=== PATIENT | male | born 2000 | race Caucasian/White ===

== ENCOUNTER 2022-02-18 18:25 | Observation (INO) ==
[2022-02-18] MEDS ORDERED: ONDANSETRON INJ 2 MG/ML 2 ML VIAL IV STA (18:33)
[2022-02-18] MEDS ORDERED: SODIUM CHLORIDE 0.9% 500 ML IV STA (18:33)
[2022-02-18] MEDS ORDERED: SODIUM CHLORIDE 0.9% 1000ML 1,000 ML IV ONE (19:12)
--- NOTE | 2022-02-18 19:16 | Emergency Department Note ---
Impression & Plan Hypotension, Lower abdominal pain, Acute infectious diarrhea, Hypokalemia, Acute dehydration, Near syncope ED Provider Note NAME: SANDEE CAMEJO AGE: 21 SEX: M : 2000 ARRIVES VIA: Walk-In INFORMANT: Patient ED PROVIDER(S): [Flex Carrasco MD] CHIEF COMPLAINT: Abdominal pain HISTORY OF PRESENT ILLNESS: The patient is a 21-year-old male who has had diarrhea for 2 weeks. No black or bloody stool. He states that when he would eat something, he would have to run t o the bathroom. Today, he developed vomiting on top of the diarrhea and also some severe mid to lower abdominal pain. The pain was constant. He felt near syncopal. There has been no fever, no urinary complaint. No cough or cold or congestion. The patient has not had any sick contacts. No bad food eaten. He has not been camping. He has no known inflammatory bowel disease, ulcerative colitis or Crohn's disease diagnosis. REVIEW OF SYSTEMS: See HPI for pertinent positives and negatives. A total of ten systems were reviewed and were otherwise negative. PMHx/PSHx: See Below SOCIAL HISTORY: See Below. PHYSICAL EXAM: GENERAL: Patient is in no acute distress. HEENT: No acute trauma, normocephalic atraumatic, mucous membranes moist, no nasal congestion, no scleral icterus. NECK: No stridor, no adenopathy, no meningismus, trachea is midline. LUNGS: Clear to auscultation bilaterally, no wheeze, no rhonchi, breath sounds equal. HEART: Without murmurs gallops or rubs, regular rate and rhythm. ABDOMEN: Soft, moderately tender in the left lower quadrant, bowel sounds pos itive, no peritonitis. EXTREMITIES: No cyanosis or edema, full range of motion of all the joints wit hout pain or difficulty, no signs for acute trauma. NEUROLOGIC: Oriented x 3, no acute motor or sensory deficits, no focal weakness. SKIN: No rash, no jaundice, no diaphoresis. DIFFERENTIAL DIAGNOSIS: Appendicitis, testicular torsion, viral or foodborne illness, diverticulitis, colitis, UTI, obstruction, mesenteric ischemia, aortic pathology, inflammatory bowel disease, renal colic, PUD, pancreatitis, biliary pathology, hernia, volvulus, constipation, as well as other pathologies. EMERGENCY DEPARTMENT COURSE/PROCEDURES: ECG: Indication was near syncope. The ECG shows a normal sinus rhythm with a rate of 96. There is some diffuse nonspecific ST change. There is no ST elevation, no PVCs. The QTc is 414. Continuous Cardiac Monitoring: An order was placed for continuous cardiac monitoring. The monitor shows a rate of 78 with normal sinus rhythm. Critical Care Note: I have personally spent 43 minutes of critical care time in the direct management of this patient. This includes bedside care, interpretation of diagnostic studies, and testing, discussion with consultants, patient, and family members, and other required patient management activities. This 43 minutes is in excess of all separately billable procedures. MEDICAL DECISION MAKING: There is a mild leukocytosis which could be consistent with infection. Hemoglobin was actually high at 18.5, consistent with dehydration. Platelet count was adequate. Potassium was low at 3.3. No renal failure. No concerning liver enzyme elevation. No evidence for pancreatitis. Urinalysis did not show infection. Stool bio fire testing returned positive for E. coli, Entamoeba histolytica, Giardia lamblia, norovirus. Abdominal and pelvis CT showed air- fluid levels in the colon consistent with diarrhea, no colitis or diverticulitis described. COVID test returned negative. The patient received 2 L of IV saline, he received IV potassium, IV Zofran. The patient presents with 2 weeks of diarrhea. Things progressed today to lower abdominal pain and vomiting. He had a near syncopal spell in triage and his initial blood pressure was low in the 80s. I do think the patient requires a hospital stay. I did attempt to contact her GI but I was unable to speak to the on-call physician. The secretaries were unable to reach him via phone or text. I did speak with case management, I spoke with the patient at length. I did speak with the on-call hospitalist. Past Med/Surg History Medical History No significant medical problems Social History Smoking Status: Never smoker Preferred Language: Nigerian Feels Safe at Home: Yes Allergies Allergies Allergy/AdvReac Type Severity Reaction Status Date / Time No Known Allergies Allergy Unverified 02/18/22 19:53 Home Meds Home Medications Medication Instructions Recorded Confirmed Fiber Gummy 1 tab PO DAILY 02/18/22 02/18/22 aripiprazole 10 mg tablet (Abilify) 0 mg PO DAILY 02/18/22 02/18/22 sertraline 25 mg tablet (Zoloft) 0 mg PO DAILY 02/18/22 02/18/22 Results & Data (ED) Vital Signs Vital Signs - 24 hr 02/18/22 18:27 02/18/22 18:47 02/18/22 19:10 Temperature 36.4 C L Temperature Source Temporal Artery Scan Pulse Rate 105 H Pulse Rate [Left Apical] 78 Pulse Rhythm [Left Apical] Regular Pulse Strength [Left Apical] Normal Respiratory Rate 18 20 Respiratory Effort / Characteristics Non-Labored Respiratory Depth Normal Blood Pressure 88/37 L Blood Pressure [Right Arm] 96/47 L 135/81 Blood Pressure Mean 54 Blood Pressure Mean [Right Arm] 63 99 Blood Pressure Position Sitting Blood Pressure Position [Right Arm] Lying Lying Pulse Oximetry 97 98 Oxygen Delivery Method Room Air Room Air Sepsis Recent Fever Within 48 Hours No Sepsis New/Unexplained Change in Mental Status No Sepsis Action Taken by Nursing No Action Required 02/18/22 21:00 02/18/22 23:00 Temperature Temperature Source Pulse Rate Pulse Rate [Left Apical] 78 78 Pulse Rhythm [Left Apical] Pulse Strength [Left Apical] Respiratory Rate 12 19 Respiratory Effort / Characteristics Respiratory Depth Normal Blood Pressure Blood Pressure [Right Arm] 121/66 123/78 Blood Pressure Mean Blood Pressure Mean [Right Arm] 84 93 Blood Pressure Position Blood Pressure Position [Right Arm] Pulse Oximetry 98 98 Oxygen Delivery Method Room Air Room Air Sepsis Recent Fever Within 48 Hours Sepsis New/Unexplained Change in Mental Status Sepsis Action Taken by Long-Term Medications Current Medication List: was personally reviewed by me Laboratory Data Attestation: I reviewed the patient's lab results. Result diagrams: 02/18/22 18:50 02/18/22 18:50 Lab Results 02/18/22 02/18/22 02/18/22 Range/Units 14:33 18:50 18:50 WBC 12.66 H (4.8-10.8) K/uL RBC 6.43 H (4.7-6.1) M/uL Hgb 18.5 H (14.0-18.0) g/dL Hct 51.0 (42-52) % MCV 79.3 L (80-100) fL MCH 28.8 (25-34) pg MCHC 36.3 H (32-36) g/dL RDW Std Deviation 35.7 L (36.4-46.3) fL RDW Coeff of Shakira 12.5 (11.5-14.5) % Plt Count (130-400) K/uL MPV (7.4-10.4) fL Immature Gran % (Auto) 0.3 % Neut % (Auto) 70.3 % Lymph % (Auto) 18.2 % [place] % (Auto) 10.4 % Eos % (Auto) 0.6 % Baso % (Auto) 0.2 % Neut # (Auto) 8.91 H (1.4-6.5) K/uL Lymph # (Auto) 2.30 (1.2-3.4) K/uL [place] # (Auto) 1.32 H (0.11-0.59) K/uL Eos # (Auto) 0.07 (0-0.5) K/uL Baso # (Auto) 0.02 (0-0.2) K/uL Immature Gran # (Auto) 0.04 H (0.00-0.02) K/uL Sodium 135 L (136-145) mmol/L Potassium 3.3 L (3.5-5.1) mmol/L Chloride 105 (98-107) mmol/L Carbon Dioxide 21 (21-32) mmol/L Anion Gap 9 (3-11) BUN 15 (6-23) mg/dl Creatinine 1.12 (0.6-1.4) mg/dl Est Cr Clr Drug Dosing 108.1 ml/min Est GFR ( Amer) 108.3 ml/min Est GFR (Non-Af Amer) 93.4 ml/min BUN/Creatinine Ratio 13.4 (10-20) Glucose 140 H (70-99(Fasting)) mg/dl Calcium 9.2 (8.5-10.1) mg/dl Magnesium (1.7-2.4) mg/dl Total Bilirubin 0.5 (0.2-1.0) mg/dl AST 29 (13-39) U/L ALT 17 (7-52) U/L Alkaline Phosphatase 71 (34-104) U/L Total Protein 8.1 (6.0-8.3) gm/dl Albumin 4.4 (3.4-5.0) gm/dl Globulin 3.7 (2.5-4.0) gm/dl Albumin/Globulin Ratio 1.2 (0.9-2) Lipase 23 (11-82) U/L Urine Color Urine Appearance (Clear) Urine pH (4.5-7.5) Ur Specific [place] (1.000-1.030) Urine Protein (Negative) Urine Glucose (UA) (Negative) Urine Ketones (Negative) Urine Blood (Negative) Urine Nitrite (Negative) Urine Bilirubin (Negative) Urine Urobilinogen (Negative) Ur Leukocyte Esterase (Negative) Urine WBC (Auto) (0-5) /hpf Urine RBC (Auto) (0-4) /hpf U Hyaline Cast (Auto) (0-5) /lpf U Epithel Cells (Auto) (0-5) /lpf Urine Bacteria (Auto) (Negative) Granular Casts (0) /lpf Stl C. cayetanensis PCR (NotDetected) Stool Rotavirus A PCR (NotDetected) Stl Adenov F 40/41 PCR (NotDetected) Stool Astrovirus (PCR) (NotDetected) Stool Campylobacter PCR (NotDetected) Stl C. diff Tox A/B PCR (NotDetected) Stool Cryptosporidium PCR (NotDetected) Stl E.coli Shiga Tox PCR (NotDetected) Stl Enterotoxigenic E PCR (NotDetected) Stool EPEC (PCR) (NotDetected) Stool EAEC (PCR) (NotDetected) Stl E. histolytica PCR (NotDetected) Stool Giardia Lamblia PCR (NotDetected) Stool Salmonella PCR (NotDetected) Stool Sapovirus (PCR) (NotDetected) Stl P. shigelloides PCR (NotDetected) Stl Shigella/EIEC PCR (NotDetected) St Y.enterocolitica PCR (NotDetected) Stool Vibrio (PCR) (NotDetected) Stl Vibrio cholerae PCR (NotDetected) Stl Norovirus GI/GII PCR (NotDetected) SARS-CoV-2, RNA, NAAT NEGATIVE (NEGATIVE) 02/18/22 02/18/22 02/18/22 Range/Units 18:50 20:54 20:54 WBC (4.8-10.8) K/uL RBC (4.7-6.1) M/uL Hgb (14.0-18.0) g/dL Hct (42-52) % MCV (80-100) fL MCH (25-34) pg MCHC (32-36) g/dL RDW Std Deviation (36.4-46.3) fL RDW Coeff of Shakira (11.5-14.5) % Plt Count (130-400) K/uL MPV (7.4-10.4) fL Immature Gran % (Auto) % Neut % (Auto) % Lymph % (Auto) % [place] % (Auto) % Eos % (Auto) % Baso % (Auto) % Neut # (Auto) (1.4-6.5) K/uL Lymph # (Auto) (1.2-3.4) K/uL [place] # (Auto) (0.11-0.59) K/uL Eos # (Auto) (0-0.5) K/uL Baso # (Auto) (0-0.2) K/uL Immature Gran # (Auto) (0.00-0.02) K/uL Sodium (136-145) mmol/L Potassium (3.5-5.1) mmol/L Chloride (98-107) mmol/L Carbon Dioxide (21-32) mmol/L Anion Gap (3-11) BUN (6-23) mg/dl Creatinine (0.6-1.4) mg/dl Est Cr Clr Drug Dosing ml/min Est GFR ( Amer) ml/min Est GFR (Non-Af Amer) ml/min BUN/Creatinine Ratio (10-20) Glucose (70-99(Fasting)) mg/dl Calcium (8.5-10.1) mg/dl Magnesium 1.7 (1.7-2.4) mg/dl Total Bilirubin (0.2-1.0) mg/dl AST (13-39) U/L ALT (7-52) U/L Alkaline Phosphatase (34-104) U/L Total Protein (6.0-8.3) gm/dl Albumin (3.4-5.0) gm/dl Globulin (2.5-4.0) gm/dl Albumin/Globulin Ratio (0.9-2) Lipase (11-82) U/L Urine Color Yellow Urine Appearance Clear (Clear) Urine pH 5.5 (4.5-7.5) Ur Specific [place] > 1.045 H (1.000-1.030) Urine Protein Trace H (Negative) Urine Glucose (UA) Negative (Negative) Urine Ketones Negative (Negative) Urine Blood Negative (Negative) Urine Nitrite Negative (Negative) Urine Bilirubin Negative (Negative) Urine Urobilinogen Negative (Negative) Ur Leukocyte Esterase Negative (Negative) Urine WBC (Auto) 1-5 (0-5) /hpf Urine RBC (Auto) 0-4 (0-4) /hpf U Hyaline Cast (Auto) 1-5 (0-5) /lpf U Epithel Cells (Auto) 10-20 H (0-5) /lpf Urine Bacteria (Auto) Negative (Negative) Granular Casts 1-5 H (0) /lpf Stl C. cayetanensis PCR Not Detected (NotDetected) Stool Rotavirus A PCR Not Detected (NotDetected) Stl Adenov F 40/41 PCR Not Detected (NotDetected) Stool Astrovirus (PCR) Not Detected (NotDetected) Stool Campylobacter PCR Not Detected (NotDetected) Stl C. diff Tox A/B PCR Not Detected (NotDetected) Stool Cryptosporidium PCR Not Detected (NotDetected) Stl E.coli Shiga Tox PCR Not Detected (NotDetected) Stl Enterotoxigenic E PCR Not Detected (NotDetected) Stool EPEC (PCR) DETECTED A* (NotDetected) Stool EAEC (PCR) Not Detected (NotDetected) Stl E. histolytica PCR DETECTED A* (NotDetected) Stool Giardia Lamblia PCR DETECTED A* (NotDetected) Stool Salmonella PCR Not Detected (NotDetected) Stool Sapovirus (PCR) Not Detected (NotDetected) Stl P. shigelloides PCR Not Detected (NotDetected) Stl Shigella/EIEC PCR Not Detected (NotDetected) St Y.enterocolitica PCR Not Detected (NotDetected) Stool Vibrio (PCR) Not Detected (NotDetected) Stl Vibrio cholerae PCR Not Detected (NotDetected) Stl Norovirus GI/GII PCR DETECTED A* (NotDetected) SARS-CoV-2, RNA, NAAT (NEGATIVE) Administered Medications Metronidazole (Flagyl) 500 mg in 100 mls @ 100 mls/hr IV ONE STA Stop: 02/19/22 01:32 Last Admin: 02/19/22 01:14 Dose: 100 mls/hr Documented by: [id number] Discontinued Medications Sodium Chloride (Nss) 500 mls @ 999 mls/hr IV .Q31M STA Stop: 02/18/22 19:03 Last Infusion: 02/18/22 22:30 Dose: 0 mls/hr Documented by: [id number] Admin: 02/18/22 18:42 Dose: 999 mls/hr Documented by: [id number] Sodium Chloride (Nss 1000ml) 1,000 mls @ 999 mls/hr IV .Q1H1M ONE Stop: 02/18/22 20:12 Last Infusion: 02/18/22 22:00 Dose: 0 mls/hr Documented by: [id number] Admin: 02/18/22 20:41 Dose: 999 mls/hr Documented by: [id number] Potassium Chloride (K Zain / Wtr) 10 meq in 100 mls @ 100 mls/hr IV ONE ONE; Protocol Stop: 02/18/22 20:58 Last Infusion: 02/18/22 23:06 Dose: 0 mls/hr Documented by: [id number] Admin: 02/18/22 21:00 Dose: 100 mls/hr Documented by: [id number] Sodium Chloride (Nss 1000ml) 500 mls @ 999 mls/hr IV .Q31M ONE Stop: 02/18/22 22:42 Last Infusion: 02/19/22 00:00 Dose: 0 mls/hr Documented by: [id number] Admin: 02/18/22 23:06 Dose: 999 mls/hr Documented by: [id number] Ioversol (Optiray 320 100ml) 95 ml IV ONCE ONE Stop: 02/18/22 20:08 Last Admin: 02/18/22 20:10 Dose: 95 ml Documented by: [id number] Ondansetron HCl (Ondansetron Inj 2 Mg/Ml 2 Ml Vial) 4 mg IV NOW STA Stop: 02/18/22 18:34 Last Admin: 02/18/22 18:42 Dose: 4 mg Documented by: [id number] Potassium Chloride (Potassium Chloride Crtab 20 Meq Tabcr) 40 meq PO NOW STA Stop: 02/19/22 00:34 Last Admin: 02/19/22 01:15 Dose: 40 meq Documented by: [id number] Imaging Data Radiologist's Impression: Abdomen/Pelvis CT 02/18/22 19:[address] WITH IV CONTRAST CT DOSE: 477.51 mGy.cm HISTORY: lower abd pain, diarrhea TECHNIQUE: Multiaxial CT images of the abdomen and pelvis were performed following the use of intravenous contrast. A dose lowering technique was utilized adhering to the principles of ALARA. COMPARISON STUDY: None. FINDINGS: There is a 4 mm nodule within the left lower lobe in image 1. No pneumoperitoneum. No pneumatosis. No suspicious lytic or blastic osseous lesions. The liver, gallbladder, pancreas, spleen, adrenal glands, and kidneys are unremarkable. No hydronephrosis. No retroperitoneal lymphadenopathy. Normal caliber abdominal aorta. Multiple prominent mesenteric lymph nodes. No pelvic lymphadenopathy. No pelvic free fluid. Normal bladder. Fluid-filled colon. No bowel wall thickening or obstruction. Normal appendix. IMPRESSION: 1. Fluid-filled colon. This could be seen in the setting of a diarrheal illness/gastroenteritis. 2. No bowel wall thickening or obstruction. 3. Normal appendix. 4. Multiple prominent mesenteric lymph nodes. This may be reactive to the suspected diarrheal illness. 5. A 4 mm nodule within the left lower lobe. This is of doubtful clinical significance given the patient's age. Consider six-month chest CT follow-up to ensure stability/resolution. ACT 112: Positive. There are findings on this exam that require communication between the performing entity and the patient following Patient Test Result Information Act ([place] Act 112) guidelines. Electronically signed by: Jean Pierre Sykes M.D. 02/18/2022 8:21 PM Discharge Plan Visit Data Chief Complaint: Abdominal Pain Stated Complaint: ABDOMINAL PAIN ED Provider: Flex Carrasco Discharge Problem: Hypotension, Lower abdominal pain, Acute infectious diarrhea, Hypokalemia, Acute dehydration, Near syncope Patient Disposition: Admitted As Inpatient Condition: Fair Forms Stand Alone Forms: [facility] [place] SnapUp Prescriptions Prescriptions: No Action sertraline [Zoloft] 25 mg Tablet 0 mg PO DAILY RF: 0 aripiprazole [Abilify] 10 mg Tablet 0 mg PO DAILY RF: 0 Fiber Gummy 1 tab PO DAILY RF: 0 Referrals Referrals: PCP,NO [Primary Care Provider] -
[2022-02-18 19:30] LABS: Basophils # (auto) 0.02 K/uL (0-0.2); Basophils % (auto) 0.2 %; Eosinophils # (auto) 0.07 K/uL (0-0.5); Eosinophils % (auto) 0.6 %; Immature Granulocytes # (auto) 0.04 K/uL (0.00-0.02); Immature Granulocytes % (auto) 0.3 %; Lymphocytes % (auto) 18.2 %; Monocytes # (auto) 1.32 K/uL (0.11-0.59); Monocytes % (auto) 10.4 %; Neutrophils # (auto) 8.91 K/uL (1.4-6.5); Neutrophils % (auto) 70.3 %
[2022-02-18 19:36] LABS: Hemoglobin 18.5 g/dL (14.0-18.0); Mean Corpuscular Hemoglobin 28.8 pg (25-34); Mean Corpuscular Hgb Conc 36.3 g/dL (32-36); Mean Corpuscular Volume 79.3 fL (80-100); RDW Coefficient of Variation 12.5 % (11.5-14.5); RDW Standard Deviation 35.7 fL (36.4-46.3); Red Blood Count 6.43 M/uL (4.7-6.1); White Blood Count 12.66 K/uL (4.8-10.8)
[2022-02-18 19:44] LABS: Albumin Globulin Ratio 1.2 (0.9-2); Albumin Level 4.4 gm/dl (3.4-5.0); BUN Creatinine Ratio 13.4 (10-20); Bilirubin,Total 0.5 mg/dl (0.2-1.0); Calcium 9.2 mg/dl (8.5-10.1); Creatinine Clr Calc Pharmacy 108.1 ml/min; Est GFR (African American) 108.3 ml/min; Est GFR (Non-African American) 93.4 ml/min; Globulin 3.7 gm/dl (2.5-4.0); Potassium 3.3 mmol/L (3.5-5.1); Total Protein 8.1 gm/dl (6.0-8.3)
[2022-02-18] MEDS ORDERED: POTASSIUM CHLORIDE / WTR 10 MEQ/100 ML PLCT IV ONE (19:59)
[2022-02-18] MEDS ORDERED: OPTIRAY 320 100ml IV ONE (20:07)
--- NOTE | 2022-02-18 20:23 | CT Scan Report ---
ABDOMEN AND PELVIS CT WITH IV CONTRAST CT DOSE: 477.51 mGy.cm HISTORY: lower abd pain, diarrhea TECHNIQUE: Multiaxial CT images of the abdomen and pelvis were performed following the use of intrave nous contrast. A dose lowering technique was utilized adhering to the principles of ALARA. COMPARISON STUDY: None. FINDINGS: There is a 4 mm nodule within the left lower lobe in image 1. No pneumoperitoneum. No pneum atosis. No suspicious lytic or blastic osseous lesions. The liver, gallbladder, pancreas, spleen, adr enal glands, and kidneys are unremarkable. No hydronephrosis. No retroperitoneal lymphadenopathy. Nor mal caliber abdominal aorta. Multiple prominent mesenteric lymph nodes. No pelvic lymphadenopathy. No pelvic free fluid. Normal bladder. Fluid-filled colon. No bowel wall thickening or obstruction. Norm al appendix. IMPRESSION: 1. Fluid-filled colon. This could be seen in the setting of a diarrheal illness/gastroenteritis. 2. No bowel wall thickening or obstruction. 3. Normal appendix. 4. Multiple prominent mesenteric lymph nodes. This may be reactive to the suspected diarrheal illness . 5. A 4 mm nodule within the left lower lobe. This is of doubtful clinical significance given the lisy ent's age. Consider six-month chest CT follow-up to ensure stability/resolution. ACT 112: Positive. There are findings on this exam that require communication between the performing entity and the patient following Patient Test Result Information Act ([place] Act 112) guidelines. Electronically signed by: Jean Pierre Sykes M.D. 02/18/2022 8:21 PM
[2022-02-18 21:16] LABS: Appearance Urine Clear (Clear); Bacteria Urine Automated Negative (Negative); Bilirubin Urine Negative (Negative); Blood Urine Negative (Negative); Color Urine Yellow; Glucose Urine UA Negative (Negative); Ketones Urine Negative (Negative); Leukocyte Esterase Urine Negative (Negative); Nitrite Urine Negative (Negative); Protein Urine Trace (Negative); RBC Urine Automated 0-4 /hpf (0-4); Specific Gravity Urine > 1.045 (1.000-1.030); Urobilinogen Urine Negative (Negative); pH Urine 5.5 (4.5-7.5)
[2022-02-18] MEDS ORDERED: SODIUM CHLORIDE 0.9% 1000ML 500 ML IV ONE (22:12)
[2022-02-18 22:52] LABS: Adenovirus F 40/41 PCR Not Detected (NotDetected); Astrovirus PCR Not Detected (NotDetected); Campylobacter PCR Not Detected (NotDetected); Clostridium diff Toxin A/B PCR Not Detected (NotDetected); Cryptosporidium PCR Not Detected (NotDetected); Cyclospora cayetanensis PCR Not Detected (NotDetected); Enteroaggregative E.coli(EAEC) Not Detected (NotDetected); Enterotoxigenic E.coli (ETEC) Not Detected (NotDetected); Plesiomonas shigelloides PCR Not Detected (NotDetected); Rotavirus A PCR Not Detected (NotDetected); Salmonella PCR Not Detected (NotDetected); Sapovirus PCR Not Detected (NotDetected); Shiga-like Toxin E.coli (STEC) Not Detected (NotDetected); Shigella/Enteroinvasive E.coli Not Detected (NotDetected); Vibrio cholerae PCR Not Detected (NotDetected); Vibrio species PCR Not Detected (NotDetected); Yersinia enterocolitica PCR Not Detected (NotDetected)
[2022-02-18 23:04] LABS: Entamoeba histolytica PCR DETECTED (NotDetected); Enteropathogenic E.coli (EPEC) DETECTED (NotDetected); Giardia lamblia PCR DETECTED (NotDetected); Norovirus GI/GII PCR DETECTED (NotDetected)
[2022-02-19] MEDS ORDERED: POTASSIUM CHLORIDE CRTAB 20 MEQ TABCR PO STA (00:33)
[2022-02-19] MEDS ORDERED: metroNIDAZOLE 500 MG/100 ML BAG IV STA (00:33)
--- NOTE | 2022-02-19 00:37 | History & Physical Report ---
Date of Service February 19, 2022 Assessment & Plan (1) Acute infectious diarrhea: Plan: Multiple enteric pathogens on stool work-up hx of international travel 3 months ago (Giardia, Entamoeba histolytica, enteropathogenic E. coli, norovirus) Rule out immunocompromised state (HIV disease) Hypokalemia secondary to illness Incidental finding of SPN on CT Mood disorder, at baseline Hyperglycemia rule out DM [facility] Flagyl for Gardia and amebiasis for now [Unfortunately, recommended first-line agents for Giardiasis (Nitazoxanide or Tinidazole) and Entamoeba histolytica (Paromomycin and Tinidazole) not available inpatient.] [facility] [place] ID consult Re: Infectious diarrhea/multiple pathogens HIV test once with patient consent (Patient would like to contemplate about testing for now.) Replace potassium Check hemoglobin A1c Outpatient follow-up CT chest imaging 6 months from now for SPN (Patient given copy of CT report.) Patient to clarify doses of home neuropsychotropic medications. DVT prophylaxis. Lovenox subcu Full code Text document was generated using Peek voice recognition software. It may contain grammatical or spelling errors. Kindly contact undersigned for clarification of any documentation item in question. History of Present Illness Chief Complaint: Diarrhea Primary Care Provider: NO PCP History obtained from patient and records. Medical history significant for mood disorder. 2 weeks history of watery diarrhea symptoms with abdominal cramping. No fever, no chills. Patient with lightheadedness. Travel to [place] about 3 months ago. No known recent sick contacts. No recent HIV testing. Patient had emesis symptoms today. Patient consulted ER for evaluation. Medical History as above Surgical History : None Family History : DM Personal/Social history : Non-smoker, occasional EtOH intake, recent [employer] graduate, relocating to [place] for work next month Allergies Allergy/AdvReac Type Severity Reaction Status Date / Time No Known Allergies Allergy Unverified 02/18/22 19:53 Home Medications Medication Instructions Recorded Confirmed Type Fiber Gummy 1 tab PO DAILY 02/18/22 02/18/22 History aripiprazole 10 mg tablet (Abilify) 0 mg PO DAILY 02/18/22 02/18/22 History sertraline 25 mg tablet (Zoloft) 0 mg PO DAILY 02/18/22 02/18/22 History Past Med/Surg History Medical History No significant medical problems Social History Smoking Status: Never smoker Hx Alcohol Use: No Hx Substance Use: No Preferred Language: Sami Communication Ability: Effective Nursing Scheduler Required: No Beliefs That Will Affect Care: None Current Living Situation: Other Current Living Situation Comment: Roomates Other Information That Helps Us Care for You: No Feels Safe at Home: Yes Safety Concerns: Feels Safe At This Time Review of Systems Review of Systems: As per HPI, all other systems reviewed and negative Physical Exam Physical Exam: GENERAL: Comfortable, pleasant, no respiratory distress SKIN: Normal color, warm HEENT: [place] palpebral conjunctivae, no ptosis, dry buccal mucosa NECK : Supple, no tenderness CHEST : CTA, no tenderness HEART : RRR, no obvious murmurs ABDOMEN: Some distention, minimal hypogastric tenderness EXTREMITIES : No LE swelling/tenderness, no other conspicuous deformities noted NEUROLOGIC : Coherent, no facial asymmetry, no other gross focality Results & Data Results & Data ([facility]) Vital Signs (Past 12 Hours) Vital Signs Temp Pulse Pulse Resp BP BP Pulse Ox 02/18/22 23:00 78 19 123/78 98 02/18/22 21:00 78 12 121/66 98 02/18/22 19:10 78 20 135/81 98 02/18/22 18:47 96/47 L 02/18/22 18:27 36.4 C L 105 H 18 88/37 L 97 Laboratory Results Laboratory Results WBC 12.66 K/uL (4.8-10.8) H 02/18/22 18:50 RBC 6.43 M/uL (4.7-6.1) H 02/18/22 18:50 Hgb 18.5 g/dL (14.0-18.0) H 02/18/22 18:50 Hct 51.0 % (42-52) 02/18/22 18:50 MCV 79.3 fL (80-100) L 02/18/22 18:50 MCH 28.8 pg (25-34) 02/18/22 18:50 MCHC 36.3 g/dL (32-36) H 02/18/22 18:50 RDW Std Deviation 35.7 fL (36.4-46.3) L 02/18/22 18:50 RDW Coeff of Shakira 12.5 % (11.5-14.5) 02/18/22 18:50 Plt Count K/uL (130-400) 02/18/22 18:50 MPV fL (7.4-10.4) 02/18/22 18:50 Immature Gran % (Auto) 0.3 % 02/18/22 18:50 Neut % (Auto) 70.3 % 02/18/22 18:50 Lymph % (Auto) 18.2 % 02/18/22 18:50 Price % (Auto) 10.4 % 02/18/22 18:50 Eos % (Auto) 0.6 % 02/18/22 18:50 Baso % (Auto) 0.2 % 02/18/22 18:50 Neut # (Auto) 8.91 K/uL (1.4-6.5) H 02/18/22 18:50 Lymph # (Auto) 2.30 K/uL (1.2-3.4) 02/18/22 18:50 Price # (Auto) 1.32 K/uL (0.11-0.59) H 02/18/22 18:50 Eos # (Auto) 0.07 K/uL (0-0.5) 02/18/22 18:50 Baso # (Auto) 0.02 K/uL (0-0.2) 02/18/22 18:50 Immature Gran # (Auto) 0.04 K/uL (0.00-0.02) H 02/18/22 18:50 Sodium 135 mmol/L (136-145) L 02/18/22 18:50 Potassium 3.3 mmol/L (3.5-5.1) L 02/18/22 18:50 Chloride 105 mmol/L (98-107) 02/18/22 18:50 Carbon Dioxide 21 mmol/L (21-32) 02/18/22 18:50 Anion Gap 9 (3-11) 02/18/22 18:50 BUN 15 mg/dl (6-23) 02/18/22 18:50 Creatinine 1.12 mg/dl (0.6-1.4) 02/18/22 18:50 Est Cr Clr Drug Dosing 108.1 ml/min 02/18/22 18:50 Est GFR ( Amer) 108.3 ml/min 02/18/22 18:50 Est GFR (Non-Af Amer) 93.4 ml/min 02/18/22 18:50 BUN/Creatinine Ratio 13.4 (10-20) 02/18/22 18:50 Glucose 140 mg/dl (70-99(Fasting)) H 02/18/22 18:50 Calcium 9.2 mg/dl (8.5-10.1) 02/18/22 18:50 Magnesium 1.7 mg/dl (1.7-2.4) 02/18/22 18:50 Total Bilirubin 0.5 mg/dl (0.2-1.0) 02/18/22 18:50 AST 29 U/L (13-39) 02/18/22 18:50 ALT 17 U/L (7-52) 02/18/22 18:50 Alkaline Phosphatase 71 U/L (34-104) 02/18/22 18:50 Total Protein 8.1 gm/dl (6.0-8.3) 02/18/22 18:50 Albumin 4.4 gm/dl (3.4-5.0) 02/18/22 18:50 Globulin 3.7 gm/dl (2.5-4.0) 02/18/22 18:50 Albumin/Globulin Ratio 1.2 (0.9-2) 02/18/22 18:50 Lipase 23 U/L (11-82) 02/18/22 18:50 Urine Color Yellow 02/18/22 20:54 Urine Appearance Clear (Clear) 02/18/22 20:54 Urine pH 5.5 (4.5-7.5) 02/18/22 20:54 Ur Specific [place] > 1.045 (1.000-1.030) H 02/18/22 20:54 Urine Protein Trace (Negative) H 02/18/22 20:54 Urine Glucose (UA) Negative (Negative) 02/18/22 20:54 Urine Ketones Negative (Negative) 02/18/22 20:54 Urine Blood Negative (Negative) 02/18/22 20:54 Urine Nitrite Negative (Negative) 02/18/22 20:54 Urine Bilirubin Negative (Negative) 02/18/22 20:54 Urine Urobilinogen Negative (Negative) 02/18/22 20:54 Ur Leukocyte Esterase Negative (Negative) 02/18/22 20:54 Urine WBC (Auto) 1-5 /hpf (0-5) 02/18/22 20:54 Urine RBC (Auto) 0-4 /hpf (0-4) 02/18/22 20:54 U Hyaline Cast (Auto) 1-5 /lpf (0-5) 02/18/22 20:54 U Epithel Cells (Auto) 10-20 /lpf (0-5) H 02/18/22 20:54 Urine Bacteria (Auto) Negative (Negative) 02/18/22 20:54 Granular Casts 1-5 /lpf (0) H 02/18/22 20:54 Stl C. cayetanensis PCR Not Detected (NotDetected) 02/18/22 20:54 Stool Rotavirus A PCR Not Detected (NotDetected) 02/18/22 20:54 Stl Adenov F 40/41 PCR Not Detected (NotDetected) 02/18/22 20:54 Stool Astrovirus (PCR) Not Detected (NotDetected) 02/18/22 20:54 Stool Campylobacter PCR Not Detected (NotDetected) 02/18/22 20:54 Stl C. diff Tox A/B PCR Not Detected (NotDetected) 02/18/22 20:54 Stool Cryptosporidium PCR Not Detected (NotDetected) 02/18/22 20:54 Stl E.coli Shiga Tox PCR Not Detected (NotDetected) 02/18/22 20:54 Stl Enterotoxigenic E PCR Not Detected (NotDetected) 02/18/22 20:54 Stool EPEC (PCR) DETECTED (NotDetected) A* 02/18/22 20:54 Stool EAEC (PCR) Not Detected (NotDetected) 02/18/22 20:54 Stl E. histolytica PCR DETECTED (NotDetected) A* 02/18/22 20:54 Stool Giardia Lamblia PCR DETECTED (NotDetected) A* 02/18/22 20:54 Stool Salmonella PCR Not Detected (NotDetected) 02/18/22 20:54 Stool Sapovirus (PCR) Not Detected (NotDetected) 02/18/22 20:54 Stl P. shigelloides PCR Not Detected (NotDetected) 02/18/22 20:54 Stl Shigella/EIEC PCR Not Detected (NotDetected) 02/18/22 20:54 St Y.enterocolitica PCR Not Detected (NotDetected) 02/18/22 20:54 Stool Vibrio (PCR) Not Detected (NotDetected) 02/18/22 20:54 Stl Vibrio cholerae PCR Not Detected (NotDetected) 02/18/22 20:54 Stl Norovirus GI/GII PCR DETECTED (NotDetected) A* 02/18/22 20:54 SARS-CoV-2, RNA, NAAT NEGATIVE (NEGATIVE) 02/18/22 14:33 Impressions Abdomen/Pelvis CT 02/18/22 19:[address] WITH IV CONTRAST CT DOSE: 477.51 mGy.cm HISTORY: lower abd pain, diarrhea TECHNIQUE: Multiaxial CT images of the abdomen and pelvis were performed following the use of intravenous contrast. A dose lowering technique was utilized adhering to the principles of ALARA. COMPARISON STUDY: None. FINDINGS: There is a 4 mm nodule within the left lower lobe in image 1. No pneumoperitoneum. No pneumatosis. No suspicious lytic or blastic osseous lesions. The liver, gallbladder, pancreas, spleen, adrenal glands, and kidneys are unremarkable. No hydronephrosis. No retroperitoneal lymphadenopathy. Normal caliber abdominal aorta. Multiple prominent mesenteric lymph nodes. No pelvic lymphadenopathy. No pelvic free fluid. Normal bladder. Fluid-filled colon. No bowel wall thickening or obstruction. Normal appendix. IMPRESSION: 1. Fluid-filled colon. This could be seen in the setting of a diarrheal illness/gastroenteritis. 2. No bowel wall thickening or obstruction. 3. Normal appendix. 4. Multiple prominent mesenteric lymph nodes. This may be reactive to the suspected diarrheal illness. 5. A 4 mm nodule within the left lower lobe. This is of doubtful clinical significance given the patient's age. Consider six-month chest CT follow-up to ensure stability/resolution. ACT 112: Positive. There are findings on this exam that require communication between the performing entity and the patient following Patient Test Result Information Act ([place] Act 112) guidelines. Electronically signed by: Jean Pierre Sykes M.D. 02/18/2022 8:21 PM
[2022-02-19] MEDS ORDERED: LACTATED RINGER'S 1,000 ML IV STA (00:45)
[2022-02-19] MEDS ORDERED: PROMETHAZINE HCL 12.5 MG in SODIUM CHLORIDE 0.9% 50 ML IV PRN (02:41)
[2022-02-19] MEDS ORDERED: ACETAMINOPHEN 325 MG TAB PO PRN (02:41)
[2022-02-19] MEDS ORDERED: KETOROLAC TROMETHAMINE 15 MG/ML VIAL IV PRN (02:41)
[2022-02-19 07:00] LABS: Estimated Average Glucose 97 mg/dl
[2022-02-19 07:10] LABS: BUN Creatinine Ratio 12.9 (10-20); Calcium 8.2 mg/dl (8.5-10.1); Creatinine Clr Calc Pharmacy 144.2 ml/min; Est GFR (African American) 144.4 ml/min; Est GFR (Non-African American) 124.6 ml/min; Potassium 3.8 mmol/L (3.5-5.1)
[2022-02-19 07:11] LABS: Basophils # (auto) 0.03 K/uL (0-0.2); Basophils % (auto) 0.3 %; Eosinophils # (auto) 0.05 K/uL (0-0.5); Eosinophils % (auto) 0.6 %; Hematocrit (blood only) 43.4 % (42-52); Hemoglobin 15.6 g/dL (14.0-18.0); Immature Granulocytes # (auto) 0.02 K/uL (0.00-0.02); Immature Granulocytes % (auto) 0.2 %; Lymphocytes # (auto) 2.09 K/uL (1.2-3.4); Lymphocytes % (auto) 23.1 %; Mean Corpuscular Hemoglobin 29.2 pg (25-34); Mean Corpuscular Hgb Conc 35.9 g/dL (32-36); Mean Corpuscular Volume 81.1 fL (80-100); Mean Platelet Volume 9.6 fL (7.4-10.4); Monocytes # (auto) 1.39 K/uL (0.11-0.59); Monocytes % (auto) 15.4 %; Neutrophils # (auto) 5.47 K/uL (1.4-6.5); Neutrophils % (auto) 60.4 %; Platelet Count 226 K/uL (130-400); RDW Coefficient of Variation 12.7 % (11.5-14.5); RDW Standard Deviation 37.4 fL (36.4-46.3); Red Blood Count 5.35 M/uL (4.7-6.1); White Blood Count 9.05 K/uL (4.8-10.8)
[2022-02-19] MEDS: ENOXAPARIN INJ 40 MG/0.4 ML SYR SQ SCH (08:31)
[2022-02-19] MEDS: metroNIDAZOLE 500 MG TAB PO SCH ×3 (08:32→20:18)
[2022-02-19] MEDS ORDERED: AZITHROMYCIN 250 MG TAB PO SCH (15:00)
--- NOTE | 2022-02-19 16:09 | Electrocardiogram Report ---
Test Reason : Blood Pressure : / mmHG Vent. Rate : 096 BPM Atrial Rate : 096 BPM P-R Int : 182 ms QRS Dur : 084 ms QT Int : 328 ms P-R-T Axes : 060 063 038 degrees QTc Int : 414 ms Normal sinus rhythm Minor ST elevation in multiple leads, consider pericarditis vs. repolarization variant Abnormal ECG No previous ECGs available Confirmed by Kelton Bains ([id number]) on 02/19/2022 4:08:31 PM Referred By: REFERRED SELF Confirmed By:Kelton Bains
--- NOTE | 2022-02-19 16:22 | Hospitalist Progress Note ---
Date of Service February 19, 2022 Assessment & Plan (1) Acute infectious diarrhea: Plan: 21-year-old male with PMH for mood disorder presents 02/18 to our ED with complaint of watery diarrhea [no blood in the stool per patient] for 2 weeks associated with abdominal cramping, denies any fever or chills, reports lightheadedness and emesis on the day of arrival. Patient reports traveling to [place] about 3 months ago. No recent sick contacts and no such symptoms in his roommates palpation. He is being managed for the following: #. Acute infectious diarrhea Presents with 2 weeks of watery diarrhea, 2-3 times a day, no blood in the st ool. Admitting stool PCR positive for norovirus, Giardia, Entamoeba, EPEC. IV fluid, Pedialyte, patient reports feeling better, still with 2-3 loose bowels per day. Afebrile, vital signs stable Continue with metronidazole 02/19 ID evaluated, Cipro 500mg twice daily for 3 days. Metronidazole 500mg 3 times daily through February 25. From February 25 paromomycin 750 mg 3 times a day for 7 days. Continue to monitor, likely discharge in next 1 to 2 days. If symptoms persist, consider GI consult. #. Abnormal CTAP: Admitting CTAP: Findings suggestive of diarrheal illness/gastroenteritis present. Also there was a 4 mm nodule within the left lower lobe, patient will need to follow-up with CT scan of the chest in 6-month to ensure stability/ resolution. DVT prophylaxis: Enoxaparin Full code Admission and Anticipated Discharge Date Admission Date: February 19, 2022 Subjective Patient seen and examined at bedside as a follow-up of acute infectious diarrhea. Patient was lying in bed, on room air, NAD, no new acute events overnight. Patient reports having 2-3 watery diarrhea, patient is drinking Pedialyte, patient reports feeling better. Patient denies any headache/dizziness/chest pain/palpitations/belly pain/other review of symptoms. Patient denies any blood in the stool. Physical Exam Physical Exam: GENERAL: Alert and oriented x3. NAD, on RA. HEENT: No pallor, no icterus. Pupils equal, round and reactive to light. Oral mucosa moist. NECK: No JVD, no neck masses. HEART: S1 and S2 heard. Regular rate and rhythm. No murmur, no gallop. RESPIRATORY SYSTEM: Normal AP diameter. No accessory muscle use. No wheezing, no crackles. ABDOMEN: Soft, bowel sounds present, nontender, no distention. CENTRAL NERVOUS SYSTEM: No facial droop. Speech is clear. Obeys simple commands. Moves extremities. EXTREMITIES: No edema, no erythema seen. Results & Data Results & Data ([facility]) Vital Signs (Past 12 Hours) Vital Signs Temp Pulse Resp BP Pulse Ox 02/19/22 15:42 37 C 70 16 109/69 97 02/19/22 07:36 36.7 C 73 18 97/58 L 97
[2022-02-19] MEDS: CIPROFLOXACIN 500 MG TAB PO SCH (17:23)
[2022-02-20] MEDS: CIPROFLOXACIN 500 MG TAB PO SCH ×2 (05:15→17:33)
[2022-02-20] MEDS: ENOXAPARIN INJ 40 MG/0.4 ML SYR SQ SCH (09:01)
[2022-02-20] MEDS: metroNIDAZOLE 500 MG TAB PO SCH ×3 (09:01→20:30)
--- NOTE | 2022-02-20 17:21 | Hospitalist Progress Note ---
Date of Service February 20, 2022 Assessment & Plan (1) Acute infectious diarrhea: Plan: 21-year-old male with PMH for mood disorder presents 02/18 to our ED with complaint of watery diarrhea [no blood in the stool per patient] for 2 weeks associated with abdominal cramping, denies any fever or chills, reports lightheadedness and emesis on the day of arrival. Patient reports traveling to [place] about 3 months ago. No recent sick contacts and no such symptoms in his roommates palpation. He is being managed for the following: #. Acute infectious diarrhea Presents with 2 weeks of watery diarrhea, 2-3 times a day, no blood in the st ool. Admitting stool PCR positive for norovirus, Giardia, Entamoeba, EPEC. Pedialyte, patient reports feeling better, still with 2-3 loose bowels per day. Afebrile, vital signs stable Continue with metronidazole 02/19 ID evaluated, Cipro 500mg twice daily for 3 days. Metronidazole 500mg 3 times daily through February 25. From February 25 paromomycin 750 mg 3 times a day for 7 days. Continue to monitor, likely discharge in next 1 to 2 days. If symptoms persist, consider GI consult. #. Abnormal CTAP: Admitting CTAP: Findings suggestive of diarrheal illness/gastroenteritis present. Also there was a 4 mm nodule within the left lower lobe, patient will need to follow-up with CT scan of the chest in 6-month to ensure stability/resolution. DVT prophylaxis: Enoxaparin Full code Dispo: to home pending improvement in diarrhea. Admission and Anticipated Discharge Date Admission Date: February 19, 2022 Subjective Patient seen and examined at bedside as a follow-up of acute infectious diarrhea. Patient was lying in bed, on room air, NAD, no new acute events overnight. Patient reports having 2-3 watery diarrhea, patient is drinking Pedialyte, patient reports feeling better no belly pain but diarrhea volume and frequency is still the same which is what concerning for him. Patient denies any headache/dizziness/chest pain/palpitations/belly pain/other review of symptoms. Physical Exam Physical Exam: GENERAL: Alert and oriented x3. NAD, on RA. HEENT: No pallor, no icterus. Pupils equal, round and reactive to light. Oral mucosa moist. NECK: No JVD, no neck masses. HEART: S1 and S2 heard. Regular rate and rhythm. No murmur, no gallop. RESPIRATORY SYSTEM: Normal AP diameter. No accessory muscle use. No wheezing, no crackles. ABDOMEN: Soft, bowel sounds present, nontender, no distention. CENTRAL NERVOUS SYSTEM: No facial droop. Speech is clear. Obeys simple commands. Moves extremities. EXTREMITIES: No edema, no erythema seen. Results & Data Results & Data ([facility]) Vital Signs (Past 12 Hours) Vital Signs Temp Pulse Resp BP Pulse Ox 02/20/22 15:16 36.8 C 67 18 108/72 97 02/20/22 07:33 36.6 C 61 18 101/68 97
[2022-02-21] MEDS: CIPROFLOXACIN 500 MG TAB PO SCH (05:51)
[2022-02-21 07:45] LABS: Hematocrit (blood only) 43.6 % (42-52); Hemoglobin 15.4 g/dL (14.0-18.0); Mean Corpuscular Hemoglobin 28.4 pg (25-34); Mean Corpuscular Hgb Conc 35.3 g/dL (32-36); Mean Corpuscular Volume 80.4 fL (80-100); Mean Platelet Volume 9.4 fL (7.4-10.4); Platelet Count 205 K/uL (130-400); RDW Coefficient of Variation 12.7 % (11.5-14.5); RDW Standard Deviation 36.5 fL (36.4-46.3); Red Blood Count 5.42 M/uL (4.7-6.1); White Blood Count 5.85 K/uL (4.8-10.8)
[2022-02-21 08:19] LABS: Calcium 8.5 mg/dl (8.5-10.1); Magnesium 1.8 mg/dl (1.7-2.4); Potassium 3.3 mmol/L (3.5-5.1)
[2022-02-21] MEDS: metroNIDAZOLE 500 MG TAB PO SCH (08:21)
[2022-02-21] MEDS: ENOXAPARIN INJ 40 MG/0.4 ML SYR SQ SCH (08:21)
[2022-02-21 08:25] LABS: BUN Creatinine Ratio 15.9 (10-20); Creatinine Clr Calc Pharmacy 139.3 ml/min; Est GFR (African American) 142.3 ml/min; Est GFR (Non-African American) 122.8 ml/min; Phosphorus 4.6 mg/dl (2.5-4.9)
[2022-02-21] MEDS ORDERED: POTASSIUM CHLORIDE CRTAB 20 MEQ TABCR PO STA (10:24)
--- NOTE | 2022-02-21 11:36 | Discharge Summary ---
Date of Service February 21, 2022 Admission HPI Per Admitting Provider History obtained from patient and records. Medical history significant for mood disorder. 2 weeks history of watery diarrhea symptoms with abdominal cramping. No fever, no chills. Patient with lightheadedness. Travel to [place] about 3 months ago. No known recent sick contacts. No recent HIV testing. Patient had emesis symptoms today. Patient consulted ER for evaluation. Medical History as above Surgical History : None Family History : DM Personal/Social history : Non-smoker, occasional EtOH intake, recent [employer] graduate, relocating to [place] for work next month Admission Exam Per Admitting Provider GENERAL: Comfortable, pleasant, no respiratory distress SKIN: Normal color, warm HEENT: [place] palpebral conjunctivae, no ptosis, dry buccal mucosa NECK : Supple, no tenderness CHEST : CTA, no tenderness HEART : RRR, no obvious murmurs ABDOMEN: Some distention, minimal hypogastric tenderness EXTREMITIES : No LE swelling/tenderness, no other conspicuous deformities noted NEUROLOGIC : Coherent, no facial asymmetry, no other gross focality Principal Diagnosis Diarrhea due to E histolytica, Giardia, EPEC and norovirus Discharge Exam General: Lying comfortably in bed, not in distress, on room air HEENT: EOMI, AZEEM, MMM Chest: Clear breath sounds bilaterally, no wheezes or crackles CVS: Regular rate and rhythm, normal heart sounds, no murmur Abdomen: Soft, non tender, not distended, bowel sounds + Neuro: Awake, alert, oriented, conversing well, non focal Extremities: No cyanosis, clubbing or edema Discharge Data Allergies Allergy/AdvReac Type Severity Reaction Status Date / Time No Known Allergies Allergy Unverified 02/18/22 19:53 Consultations 02/18/22 23:33 ED Decision to Admit Stat 02/19/22 00:42 Consult Infectious Diseases Routine 02/19/22 05:37 Burn CD for patient Routine Ordered Studies 02/18/22 19:12 CT abd pelvis IV con only Stat Laboratory Results WBC 5.85 K/uL (4.8-10.8) 02/21/22 07:08 RBC 5.42 M/uL (4.7-6.1) 02/21/22 07:08 Hgb 15.4 g/dL (14.0-18.0) 02/21/22 07:08 Hct 43.6 % (42-52) 02/21/22 07:08 MCV 80.4 fL (80-100) 02/21/22 07:08 MCH 28.4 pg (25-34) 02/21/22 07:08 MCHC 35.3 g/dL (32-36) 02/21/22 07:08 RDW Std Deviation 36.5 fL (36.4-46.3) 02/21/22 07:08 RDW Coeff of Shakira 12.7 % (11.5-14.5) 02/21/22 07:08 Plt Count 205 K/uL (130-400) 02/21/22 07:08 MPV 9.4 fL (7.4-10.4) 02/21/22 07:08 Immature Gran % (Auto) 0.2 % 02/19/22 05:49 Neut % (Auto) 60.4 % 02/19/22 05:49 Lymph % (Auto) 23.1 % 02/19/22 05:49 [place] % (Auto) 15.4 % 02/19/22 05:49 Eos % (Auto) 0.6 % 02/19/22 05:49 Baso % (Auto) 0.3 % 02/19/22 05:49 Neut # (Auto) 5.47 K/uL (1.4-6.5) 02/19/22 05:49 Lymph # (Auto) 2.09 K/uL (1.2-3.4) 02/19/22 05:49 [place] # (Auto) 1.39 K/uL (0.11-0.59) H 02/19/22 05:49 Eos # (Auto) 0.05 K/uL (0-0.5) 02/19/22 05:49 Baso # (Auto) 0.03 K/uL (0-0.2) 02/19/22 05:49 Immature Gran # (Auto) 0.02 K/uL (0.00-0.02) 02/19/22 05:49 Sodium 141 mmol/L (136-145) 02/21/22 07:08 Potassium 3.3 mmol/L (3.5-5.1) L 02/21/22 07:08 Chloride 109 mmol/L (98-107) H 02/21/22 07:08 Carbon Dioxide 24 mmol/L (21-32) 02/21/22 07:08 Anion Gap 8 (3-11) 02/21/22 07:08 BUN 14 mg/dl (6-23) 02/21/22 07:08 Creatinine 0.88 mg/dl (0.6-1.4) 02/21/22 07:08 Est Cr Clr Drug Dosing 139.3 ml/min 02/21/22 07:08 Est GFR ( Amer) 142.3 ml/min 02/21/22 07:08 Est GFR (Non-Af Amer) 122.8 ml/min 02/21/22 07:08 BUN/Creatinine Ratio 15.9 (10-20) 02/21/22 07:08 Glucose 93 mg/dl (70-99(Fasting)) 02/21/22 07:08 Estimat Average Glucose 97 mg/dl 02/19/22 05:49 Hemoglobin A1c 5.0 % (4.5-5.6) 02/19/22 05:49 Calcium 8.5 mg/dl (8.5-10.1) 02/21/22 07:08 Phosphorus 4.6 mg/dl (2.5-4.9) 02/21/22 07:08 Magnesium 1.8 mg/dl (1.7-2.4) 02/21/22 07:08 Total Bilirubin 0.5 mg/dl (0.2-1.0) 02/18/22 18:50 AST 29 U/L (13-39) 02/18/22 18:50 ALT 17 U/L (7-52) 02/18/22 18:50 Alkaline Phosphatase 71 U/L (34-104) 02/18/22 18:50 Total Protein 8.1 gm/dl (6.0-8.3) 02/18/22 18:50 Albumin 4.4 gm/dl (3.4-5.0) 02/18/22 18:50 Globulin 3.7 gm/dl (2.5-4.0) 02/18/22 18:50 Albumin/Globulin Ratio 1.2 (0.9-2) 02/18/22 18:50 Lipase 23 U/L (11-82) 02/18/22 18:50 Urine Color Yellow 02/18/22 20:54 Urine Appearance Clear (Clear) 02/18/22 20:54 Urine pH 5.5 (4.5-7.5) 02/18/22 20:54 Ur Specific [place] > 1.045 (1.000-1.030) H 02/18/22 20:54 Urine Protein Trace (Negative) H 02/18/22 20:54 Urine Glucose (UA) Negative (Negative) 02/18/22 20:54 Urine Ketones Negative (Negative) 02/18/22 20:54 Urine Blood Negative (Negative) 02/18/22 20:54 Urine Nitrite Negative (Negative) 02/18/22 20:54 Urine Bilirubin Negative (Negative) 02/18/22 20:54 Urine Urobilinogen Negative (Negative) 02/18/22 20:54 Ur Leukocyte Esterase Negative (Negative) 02/18/22 20:54 Urine WBC (Auto) 1-5 /hpf (0-5) 02/18/22 20:54 Urine RBC (Auto) 0-4 /hpf (0-4) 02/18/22 20:54 U Hyaline Cast (Auto) 1-5 /lpf (0-5) 02/18/22 20:54 U Epithel Cells (Auto) 10-20 /lpf (0-5) H 02/18/22 20:54 Urine Bacteria (Auto) Negative (Negative) 02/18/22 20:54 Granular Casts 1-5 /lpf (0) H 02/18/22 20:54 Stl C. cayetanensis PCR Not Detected (NotDetected) 02/18/22 20:54 Stool Rotavirus A PCR Not Detected (NotDetected) 02/18/22 20:54 Stl Adenov F 40/41 PCR Not Detected (NotDetected) 02/18/22 20:54 Stool Astrovirus (PCR) Not Detected (NotDetected) 02/18/22 20:54 Stool Campylobacter PCR Not Detected (NotDetected) 02/18/22 20:54 Stl C. diff Tox A/B PCR Not Detected (NotDetected) 02/18/22 20:54 Stool Cryptosporidium PCR Not Detected (NotDetected) 02/18/22 20:54 Stl E.coli Shiga Tox PCR Not Detected (NotDetected) 02/18/22 20:54 Stl Enterotoxigenic E PCR Not Detected (NotDetected) 02/18/22 20:54 Stool EPEC (PCR) DETECTED (NotDetected) A* 02/18/22 20:54 Stool EAEC (PCR) Not Detected (NotDetected) 02/18/22 20:54 Stl E. histolytica PCR DETECTED (NotDetected) A* 02/18/22 20:54 Stool Giardia Lamblia PCR DETECTED (NotDetected) A* 02/18/22 20:54 Stool Salmonella PCR Not Detected (NotDetected) 02/18/22 20:54 Stool Sapovirus (PCR) Not Detected (NotDetected) 02/18/22 20:54 Stl P. shigelloides PCR Not Detected (NotDetected) 02/18/22 20:54 Stl Shigella/EIEC PCR Not Detected (NotDetected) 02/18/22 20:54 St Y.enterocolitica PCR Not Detected (NotDetected) 02/18/22 20:54 Stool Vibrio (PCR) Not Detected (NotDetected) 02/18/22 20:54 Stl Vibrio cholerae PCR Not Detected (NotDetected) 02/18/22 20:54 Stl Norovirus GI/GII PCR DETECTED (NotDetected) A* 02/18/22 20:54 SARS-CoV-2, RNA, NAAT NEGATIVE (NEGATIVE) 02/18/22 14:33 Impressions Abdomen/Pelvis CT 02/18/22 19:[address] WITH IV CONTRAST CT DOSE: 477.51 mGy.cm HISTORY: lower abd pain, diarrhea TECHNIQUE: Multiaxial CT images of the abdomen and pelvis were performed following the use of intravenous contrast. A dose lowering technique was utilized adhering to the principles of ALARA. COMPARISON STUDY: None. FINDINGS: There is a 4 mm nodule within the left lower lobe in image 1. No pneum operitoneum. No pneumatosis. No suspicious lytic or blastic osseous lesions. The liver, gallbladder, pancreas, spleen, adrenal glands, and kidneys are unremarkable. No hydronephrosis. No retroperitoneal lymphadenopathy. Normal caliber abdominal aorta. Multiple prominent mesenteric lymph nodes. No pelvic lymphadenopathy. No pelvic free fluid. Normal bladder. Fluid-filled colon. No bowel wall thickening or obstruction. Normal appendix. IMPRESSION: 1. Fluid-filled colon. This could be seen in the setting of a diarrheal illness/gastroenteritis. 2. No bowel wall thickening or obstruction. 3. Normal appendix. 4. Multiple prominent mesenteric lymph nodes. This may be reactive to the suspected diarrheal illness. 5. A 4 mm nodule within the left lower lobe. This is of doubtful clinical significance given the patient's age. Consider six-month chest CT follow-up to ensure stability/resolution. ACT 112: Positive. There are findings on this exam that require communication between the performing entity and the patient following Patient Test Result Information Act ([place] Act 112) guidelines. Electronically signed by: Jean Pierre Sykes M.D. 02/18/2022 8:21 PM Hospital Course (1) Acute infectious diarrhea: 21-year-old male with history of mood disorder presented to the ED on 02/18 with complaint of watery diarrhea [no blood in the stool per patient] for 2 weeks associated with abdominal cramping but no fever or chills, reported lightheadedness and emesis on the day of arrival. Patient reported traveling to [place] about 3 months ago. No recent sick contacts and no such symptoms in his roommates. #. Acute infectious diarrhea Presents with 2 weeks of watery diarrhea, 2-3 times a day, no blood in the stool. Admitting stool PCR positive for norovirus, Giardia, Entamoeba, EPEC. Pedialyte, patient reports feeling better, still with 2-3 loose bowels per day. Afebrile, vital signs stable Continue with metronidazole 02/19 ID evaluated, Cipro 500mg twice daily for 3 days. Metronidazole 500mg 3 times daily through February 25. From February 25 paromomycin 750 mg 3 times a day for 7 days. Symptoms improving, no BM since last night, denies any pain, nausea, vomiting fever or chills. He feels comfortable to go home. He denies any needs #. Abnormal CT A/P: Admitting CTAP: Findings suggestive of diarrheal illness/gastroenteritis present. Also there was a 4 mm nodule within the left lower lobe, patient will need to follow-up with CT scan of the chest in 6-month to ensure stability/resolution. Total Time Total Time Spent Total Time Spent (In Minutes): 35 Discharge Plan Discharge Items Patient Disposition: Home - Self-Care Reason For Visit: DIARRHEA Discharge Diagnosis: Diarrhea due to E histolytica, Giardia, EPEC, Norovirus Activity: Resume your previous activity Non-emergency contact: Primary Care Provider Call non-emergency contact if: you have any medication questions, your symptoms worsen, your pain is concerning for you and you have a fever Follow-up/Referrals: PCP,NO [Primary Care Provider] - Diet: Lactose Intolerant Addtl Attending Provider Instructions: Continue cipro twice daily for 1 more day Continue metronidazole 1 tab every 8 hours until 68 after which continue paromomycin 3 caps three times daily for 7 more days to complete antibiotic course PLEASE DO NOT DRINK ALCOHOL WHILE ON METRONIDAZOLE. If fever, pain or worsening diarrhea, please call your family doctor or come to the emergency If your symptoms do not completely resolve by then, follow up with gastroenterology Recommend repeat CT chest in 6 months with PCP for follow up of the lung nodule Pending Studies at Discharge: No Stand-Alone Forms: My [facility] [place], Smoking Cessation Medications and DC Order Prescriptions: New metronidazole 500 mg Tablet 500 mg PO TID Qty: 14 RF: 0 ciprofloxacin HCl 500 mg Tablet 500 mg PO Q12H Qty: 3 RF: 0 paromomycin 250 mg capsule 750 mg PO Q8H Qty: 63 RF: 0 Continued sertraline [Zoloft] 25 mg Tablet 0 mg PO DAILY RF: 0 aripiprazole [Abilify] 10 mg Tablet 0 mg PO DAILY RF: 0 Fiber Gummy 1 tab PO DAILY RF: 0 Discharge Orders: Discharge Order (Routine); Ordered 02/21/22 Ordered By: Cody Chowdhury/Other Patient Handouts: Metronidazole Oral Tablet 500 mg, Ciprofloxacin Oral Tablet 500 mg, Paromomycin Oral Capsule 250 mg Admission Data Admit Date/Time: 02/19/22 00:39 Attending Provider: Cody Benitez Admit Provider: Jean Claude Richardson Primary Care Provider: PCP,NO Other Providers: Jean Claude Richardson ; Kenney Ellis ; Celestino Jenkins ; Castillo Figueroa I. ; Shahid Randall II ; Sharla Esqueda ; Fred Gtz ; Angel Ramesh Other Interventions: Discharge Summary Assessment (RN) Last Done: 02/21/22 11:01
== END 2022-02-21 12:09 | disposition home or self-care (01) ==
LOC: ED 18:25 → INTOOBSV 02-19 00:39 → SUATTDRO 02-19 00:39 → 3W 02-19 00:39